=== PATIENT | female | born 1965 | race Caucasian/White ===

== ENCOUNTER → 2017-05-08 | Outpatient (CLI) | payer OTHER ==
[~2017-05-08] MED LIST: ALBUTEROL PO; BISCODYL PO; DESL5TAB28 PO; DOCU-116 PO; DOXE100C4 PO; DULO60CA63 PO; ESTR1TAB17 PO; FLUT15.812 NS; FLUT1DIS3 IH; GABA-529 PO; HYDR-4064 PO; L-THYROXIN PO; LORA1TAB3 PO; MONT10TA24 PO; POLY17PO4 PO; PROG200C7 PO; SUMATRIPTAN PO; TEMA30CA PO; VALCYCLOVIR PO; VENL100T4 PO; VITAMIN D2 PO
== END | disposition home or self-care (01) ==
LOC: RAH 10:47
PROVIDERS: ATTEND Internal Medicine
DX: N64.89 Other specified disorders of breast (principal); R92.8 Other abnormal and inconclusive findings on diagnostic imaging of breast
CPT/HCPCS: 76641; 77065

== ENCOUNTER 2018-02-11 16:59 | Emergency (ER) | payer OTHER ==
[2018-02-11] MEDS ORDERED: NITROGLYCERIN 1GM/1 INCH PACKET TD ONE (17:38)
[2018-02-11 17:40] LABS: BASOPHILS % (AUTO) 0.5 % (0.0-5.0); EOSINOPHILS % (AUTO) 1.1 % (0.0-8.0); HEMATOCRIT 42.7 % (36-48); MEAN CORPUSCULAR HEMOGLOBIN 33.4 pg (27.0-33.0); MEAN CORPUSCULAR HGB CONC 33.9 g/dL (32.0-36.0); MEAN CORPUSCULAR VOLUME 98.4 fL (79-99); MONOCYTES % (AUTO) 6.4 % (3.0-13.0); NUCLEATED RED BLOOD CELLS 0.1 % (0.0-0.19); PLATELET COUNT (AUTO) 278 K/uL (130-400); RED BLOOD CELL COUNT(AUTO) 4.34 MIL/uL (4.00-5.50); RED CELL DISTRIBUTION WIDTH 12.3 % (11.0-15.5); WHITE BLOOD COUNT (AUTO) 6.2 K/uL (4.8-10.8)
[2018-02-11 17:51] LABS: CREATININE 0.9 mg/dL (0.5-1.5); POTASSIUM 4.1 mmol/L (3.5-5.1)
[2018-02-11 17:55] LABS: ALBUMIN 3.4 g/dL (3.5-5.0); BILIRUBIN,TOTAL 0.1 mg/dL (0.2-1.0); TOTAL PROTEIN, SERUM 7.1 g/dL (6.0-8.3)
[2018-02-11 18:01] LABS: AMPHET/METH SCREEN,URINE NEGATIVE (NEGATIVE); BARBITURATE SCREEN, URINE NEGATIVE (NEGATIVE); BENZODIAZEPINES SCREEN,URINE NEGATIVE (NEGATIVE); CANNABINOID SCREEN,URINE NEGATIVE (NEGATIVE); COCAINE SCREEN,URINE NEGATIVE (NEGATIVE); OPIATE SCREEN,URINE NEGATIVE (NEGATIVE); PHENCYCLIDINE SCREEN,URINE NEGATIVE (NEGATIVE)
== END 2018-02-11 19:04 | disposition home or self-care (01) ==
LOC: EDH 16:59
DX: F41.9 Anxiety disorder, unspecified (principal); R07.89 Other chest pain; I10 Essential (primary) hypertension; J45.909 Unspecified asthma, uncomplicated; E07.9 Disorder of thyroid, unspecified; Z88.2 Allergy status to sulfonamides; Z88.5 Allergy status to narcotic agent
CPT/HCPCS: 36415; 71045; 80053; 80305; 84484; 85025; 93005; 99285; G0480

== ENCOUNTER 2018-03-11 03:26 | Emergency (ER) | payer OTHER ==
[2018-03-11 03:48] LABS: BASOPHILS % (AUTO) 0.4 % (0.0-5.0); EOSINOPHILS % (AUTO) 1.2 % (0.0-8.0); HEMATOCRIT 37.7 % (36-48); LYMPHOCYTES % (AUTO) 23.9 % (21.0-51.0); MEAN CORPUSCULAR HGB CONC 34.7 g/dL (32.0-36.0); MONOCYTES % (AUTO) 5.9 % (3.0-13.0); NEUTROPHILS % (AUTO) 68.6 % (40.0-77.0); PLATELET COUNT (AUTO) 260 K/uL (130-400); RED BLOOD CELL COUNT(AUTO) 3.85 MIL/uL (4.00-5.50); RED CELL DISTRIBUTION WIDTH 12.3 % (11.0-15.5); WHITE BLOOD COUNT (AUTO) 8.1 K/uL (4.8-10.8)
[2018-03-11 03:53] LABS: APPEARANCE,URINE Clear (CLEAR); BILIRUBIN,URINE Negative (NEGATIVE); COLOR,URINE Yellow (YELLOW); GLUCOSE, URINE (UA) Negative (NEGATIVE); KETONES,URINE Negative (NEGATIVE); LEUKOCYTE ESTERASE ,URINE Negative (NEGATIVE); NITRATE,URINE Negative (NEGATIVE); OCCULT BLOOD,URINE Negative (NEGATIVE); PH,URINE 6.5 (5.0-8.0); PROTEIN,URINE Negative (NEGATIVE); UROBILINOGEN,URINE 0.2 mg/dL (0.2-1.0)
[2018-03-11 03:56] LABS: CARBON DIOXIDE 20 mmol/L (21-32); CHLORIDE 104 mmol/L (101-111); CREATININE 0.9 mg/dL (0.5-1.5); GLOMERULAR FILTR. RATE CALC 69 mL/min (>60); GLUCOSE,RANDOM 135 mg/dL (70-105); SODIUM SERUM 138 mmol/L (136-145); UREA NITROGEN, BLOOD 14 mg/dL (7-18)
[2018-03-11 04:00] LABS: AMPHET/METH SCREEN,URINE NEGATIVE (NEGATIVE); BARBITURATE SCREEN, URINE NEGATIVE (NEGATIVE); BENZODIAZEPINES SCREEN,URINE NEGATIVE (NEGATIVE); CANNABINOID SCREEN,URINE NEGATIVE (NEGATIVE); COCAINE SCREEN,URINE NEGATIVE (NEGATIVE); OPIATE SCREEN,URINE NEGATIVE (NEGATIVE); PHENCYCLIDINE SCREEN,URINE NEGATIVE (NEGATIVE)
[2018-03-11 04:00] LABS: ALANINE AMINOTRANSFERASE 29 U/L (12-78); ALBUMIN 3.4 g/dL (3.5-5.0); ALCOHOL, BLOOD < 3 mg/dL (0-10); ASPARTATE AMINOTRANSFERASE 19 U/L (10-37); BILIRUBIN,TOTAL 0.2 mg/dL (0.2-1.0); CREATINE KINASE, TOTAL 80 U/L (21-232); TOTAL PROTEIN, SERUM 7.1 g/dL (6.0-8.3)
[2018-03-11 04:11] LABS: ACETAMINOPHEN < 1 mcg/mL (10-30); SALICYLATE < 2.8 mg/dL (2.8-20.0)
[2018-03-11] MEDS ORDERED: SODIUM CHLORIDE 0.9% 1000ML 1,000 ML IV ONE (04:23)
[2018-03-11] MEDS ORDERED: ONDANSETRON HCL 4 MG/2 ML VIAL ONE ×2 (05:03→06:11)
[2018-03-11 09:35] LABS: ACETAMINOPHEN < 1 mcg/mL (10-30); SALICYLATE < 2.8 mg/dL (2.8-20.0)
== END 2018-03-11 14:07 ==
LOC: EDH 03:26
DX: T14.91XA Suicide attempt, initial encounter (principal); T40.4X2A Poisoning by other synthetic narcotics, intentional self-harm, initial encounter; F41.9 Anxiety disorder, unspecified; J45.909 Unspecified asthma, uncomplicated; F32.9 Major depressive disorder, single episode, unspecified; I10 Essential (primary) hypertension; E07.9 Disorder of thyroid, unspecified; Z90.710 Acquired absence of both cervix and uterus; Z88.5 Allergy status to narcotic agent; Z88.2 Allergy status to sulfonamides; Y92.89 Other specified places as the place of occurrence of the external cause; Y93.89 Activity, other specified; Y99.8 Other external cause status
CPT/HCPCS: 36415; 80053; 80305; 81003; 82550; 84484; 85025; 93005; 96374; 96376; 99285; G0480 ×3; G0481 ×2; J2405 ×2; J7030

== ENCOUNTER 2019-06-06 12:10 | Observation (INO) | payer OTHER ==
[~2019-06-06] VITALS: Ht 157.5 cm; Wt 70.6 kg
[~2019-06-06 12:10] MED LIST changes: -DESL5TAB28 PO; +DESL5TAB45 PO; -DULO60CA63 PO; +DULO60CA64 PO; -MONT10TA24 PO; +MONT10TA26 PO; +PROG200C11 PO; -PROG200C7 PO
[2019-06-06] MEDS ORDERED: RACEPINEPHRINE HCL 2.25% 0.5 ML NEB SOLN ONE ×2 (12:20→13:34)
[2019-06-06] MEDS ORDERED: IPRATROPIUM/ALBUTEROL SULFATE 3 ML SOLUTION IH ONE ×3 (12:20→17:16)
[2019-06-06] MEDS ORDERED: METHYLPREDNISOLONE SOD SUCC 125MG/2ML VIAL ONE (12:24)
[2019-06-06] MEDS ORDERED: DiphenhydrAMINE HCL 50 MG/ML VIAL ONE ×3 (12:46→20:53)
[2019-06-06 12:55] LABS: BASOPHILS % (AUTO) 0.6 % (0.0-5.0); EOSINOPHILS % (AUTO) 1.2 % (0.0-8.0); HEMATOCRIT 39.4 % (36-48); LYMPHOCYTES % (AUTO) 15.1 % (21.0-51.0); MEAN CORPUSCULAR HEMOGLOBIN 33.6 pg (27.0-33.0); MEAN CORPUSCULAR HGB CONC 34.3 g/dL (32.0-36.0); MONOCYTES % (AUTO) 7.8 % (3.0-13.0); PLATELET COUNT (AUTO) 269 K/uL (130-400); RED BLOOD CELL COUNT(AUTO) 4.02 MIL/uL (4.00-5.50); RED CELL DISTRIBUTION WIDTH 12.5 % (11.0-15.5)
[2019-06-06 13:01] LABS: CREATININE 1.1 mg/dL (0.5-1.5); POTASSIUM 3.9 mmol/L (3.5-5.1)
[2019-06-06 13:04] LABS: ALBUMIN 3.7 g/dL (3.5-5.0); BILIRUBIN,TOTAL 0.3 mg/dL (0.2-1.0); TOTAL PROTEIN, SERUM 7.9 g/dL (6.0-8.3)
[2019-06-06] MEDS: SODIUM CHLORIDE 0.9% 1000ML 1,000 ML IV SCH (16:45)
[2019-06-06] MEDS: IPRATROPIUM/ALBUTEROL SULFATE 3 ML SOLUTION IH SCH ×2 (17:28→21:01)
[2019-06-06] MEDS: METHYLPREDNISOLONE SOD SUCC 40MG/ML 1ML IVP SCH ×2 (18:00→23:59)
[2019-06-06] MEDS ORDERED: SODIUM CHLORIDE 0.9% 1000ML 1,000 ML IV ONE (19:02)
--- NOTE | 2019-06-06 19:10 | NUR ---
REPORT FROM KADY MITCHELL. PT HERE DUE TO ASTHMA EXACERBATION.
--- NOTE | 2019-06-06 19:45 | NUR ---
PT ARRIVE FROM ER. DR FRANCOIS SAW PT AT ER. CURRENTLY ON STEROIDS AND DUONEBS. HAS SEVERE COUGH, TRIGGERED BY WALKING AND TALKING. PT ON NC AT 2LPM.
[2019-06-06 20:00] VITALS: BP 155/69
[2019-06-06 23:53] VITALS: BP 151/69
[2019-06-07] MEDS: IPRATROPIUM/ALBUTEROL SULFATE 3 ML SOLUTION IH SCH ×6 (01:43→21:34)
[2019-06-07 04:22] VITALS: BP 134/62
[2019-06-07] MEDS ORDERED: LEVO50TA11 PO (05:14)
[2019-06-07] MEDS ORDERED: ESTR1TAB17 PO (05:14)
[2019-06-07] MEDS ORDERED: METO-391 PO (05:14)
[2019-06-07] MEDS ORDERED: VALA500T PO (05:14)
[2019-06-07] MEDS ORDERED: MONT10TA26 PO (05:14)
[2019-06-07] MEDS ORDERED: LIOT5TAB11 PO (05:14)
[2019-06-07] MEDS ORDERED: ADV250 IH (05:14)
[2019-06-07] MEDS ORDERED: LINA145C PO (05:14)
[2019-06-07] MEDS ORDERED: TRAZ-187 PO (05:14)
[2019-06-07] MEDS ORDERED: ERGO2000 PO (05:14)
[2019-06-07] MEDS ORDERED: DESL5TAB45 PO (05:14)
[2019-06-07] MEDS ORDERED: VENL150C2 PO (05:14)
[2019-06-07] MEDS ORDERED: PROG200C11 PO (05:14)
[2019-06-07] MEDS ORDERED: ALBU0.63 IH (05:14)
[2019-06-07] MEDS ORDERED: SUMA100T16 PO (05:14)
[2019-06-07] MEDS ORDERED: AZEL23SP NS (05:14)
[2019-06-07] MEDS ORDERED: AMLO5TAB5 PO (05:14)
[2019-06-07] MEDS: SODIUM CHLORIDE 0.9% 1000ML 1,000 ML IV SCH (06:05)
[2019-06-07] MEDS: METHYLPREDNISOLONE SOD SUCC 40MG/ML 1ML IVP SCH ×4 (06:08→23:56)
--- NOTE | 2019-06-07 07:40 | NUR ---
ASSESSMENT PT IS AAOX3 DENIES CP DENIES SOB WHILE AT REST. NO COUGHING AT THIS TIME. DENIES NV NO COMPLAINTS RESTING IN BED, CALL LIGHT WITHIN REACH. VISITOR AT BEDSIDE.
[2019-06-07 07:50] VITALS: BP 150/74
[2019-06-07] MEDS ORDERED: **HM**(Linaclotide (Linzess) 145 MCG PO PRN (09:00)
[2019-06-07] MEDS ORDERED: ACETAMINOPHEN 325 MG TAB PO PRN (09:30)
[2019-06-07 11:33] VITALS: BP 145/72
--- NOTE | 2019-06-07 13:30 | NUR ---
STATUS RESTING IN BED, NO COMPLAINTS AT THIS TIME. FAMILY AT BEDSIDE.
--- NOTE | 2019-06-07 15:30 | NUR ---
CALLED DR FRANCOIS ASKED HIM IF HE WAS GOING TO ROUND ON PATIENT, STATES HE WILL COME SEE PATIENT.
[2019-06-07] MEDS: BENZONATATE 100 MG CAPSULE PO PRN (15:51)
[2019-06-07 15:57] VITALS: BP_SYST 140; BP_SYST 142; BP_DIAS 70; BP_DIAS 79
[2019-06-07 16:03] VITALS: BP 142/70
[2019-06-07] MEDS ORDERED: CYCLOBENZAPRINE HCL 10 MG TABLET PO PRN (18:15)
[2019-06-07] MEDS ORDERED: LORAZEPAM 1 MG TABLET PO PRN (18:15)
--- NOTE | 2019-06-07 18:25 | NUR ---
DR FRANCOIS ROUNDED SAW PATIENT, ORDERS RECEIVED
[2019-06-07 19:39] VITALS: BP 171/88
[2019-06-07] MEDS ORDERED: MAGNESIUM 2GM PREMIX 50ML 50 ML IV ONE (21:00)
[2019-06-07] MEDS: LEVOFLOXACIN 500 MG/D5W 100 ML 100 ML IV SCH (21:24)
[2019-06-07] MEDS: TRAZODONE HCL 100 MG TABLET PO SCH (21:26)
[2019-06-07] MEDS: MONTELUKAST SODIUM 10 MG TAB PO SCH (21:26)
[2019-06-07] MEDS: LORATADINE 10 MG TABLET PO SCH (21:26)
[2019-06-07] MEDS: METOPROLOL SUCCINATE 50 MG TAB.SR.24H PO SCH (21:26)
[2019-06-07] MEDS: PROGESTERONE MICRONIZED 200 MG PO SCH (21:28)
[2019-06-08] VITALS: BP_DIAS 84
[2019-06-08] MEDS: IPRATROPIUM/ALBUTEROL SULFATE 3 ML SOLUTION IH SCH ×6 (01:34→21:25)
[2019-06-08 03:48] VITALS: BP 150/80
[2019-06-08] MEDS ORDERED: LEVOTHYROXINE 50 MCG TABLET ONE (06:10)
[2019-06-08] MEDS: LEVOTHYROXINE 50 MCG TABLET PO SCH (06:13)
[2019-06-08] MEDS: METHYLPREDNISOLONE SOD SUCC 40MG/ML 1ML IVP SCH ×2 (06:14→12:25)
[2019-06-08 07:16] VITALS: BP 140/75
[2019-06-08] MEDS: VENLAFAXINE HCL 225 MG PO SCH (07:37)
[2019-06-08] MEDS: ESTRADIOL 0.5 MG TABLET PO SCH (07:37)
[2019-06-08] MEDS: LIOTHYRONINE SODIUM 10 MCG PO SCH (07:37)
[2019-06-08] MEDS: AMLODIPINE BESYLATE 5 MG TAB PO SCH (07:38)
--- NOTE | 2019-06-08 07:50 | NUR ---
ASSESSMENT PT IS AAOX3 DENIES CP DENIES SOB DENIES NV NO COMPLAINTS RESTING IN BED, STATES SHE FEELS BETTER TODAY THAN YESTERDAY. CALL LIGHT WITHIN REACH.
[2019-06-08 08:35] LABS: HEMATOCRIT 38.5 % (36-48); MEAN CORPUSCULAR HEMOGLOBIN 33.4 pg (27.0-33.0); MEAN CORPUSCULAR HGB CONC 33.2 g/dL (32.0-36.0); MEAN CORPUSCULAR VOLUME 100.5 fL (79-99); PLATELET COUNT (AUTO) 245 K/uL (130-400); RED BLOOD CELL COUNT(AUTO) 3.83 MIL/uL (4.00-5.50); RED CELL DISTRIBUTION WIDTH 13.2 % (11.0-15.5); WHITE BLOOD COUNT (AUTO) 13.9 K/uL (4.8-10.8)
[2019-06-08 08:51] LABS: CREATININE 0.9 mg/dL (0.5-1.5); POTASSIUM 4.3 mmol/L (3.5-5.1)
[2019-06-08 10:34] LABS: BAND NEUTROPHILS % (MANUAL) 4 % (0-2); LYMPHOCYTES % (MANUAL) 7 % (22-44); MAN.DIFF COMMENT-IMPRESSION MANUAL DIFFERENTIAL; MONOCYTES % (MANUAL) 4 % (2-9); PLATELET MORPHOLOGY COMMENT ADEQUATE; SEGMENTED NEUTROPHILS % 85 % (40-70)
[2019-06-08 11:27] VITALS: BP 133/79
--- NOTE | 2019-06-08 14:45 | NUR ---
DR FRANCOIS CALLED ORDERED TO STOP IV STEROIDS. STATES HE WILL COME BY LATER TO SEE PATIENT.
[2019-06-08 15:20] VITALS: BP 144/77
--- NOTE | 2019-06-08 18:42 | NUR ---
CM NOTE CM called Dr. Fan to discuss plan for pt. States he is discharging today and will be coming to hospital soon to round.
[2019-06-08 19:38] VITALS: BP 141/78
[2019-06-08] MEDS: LEVOFLOXACIN 500 MG/D5W 100 ML 100 ML IV SCH (20:56)
[2019-06-08] MEDS: PROGESTERONE MICRONIZED 200 MG PO SCH (21:00)
[2019-06-08] MEDS: METOPROLOL SUCCINATE 50 MG TAB.SR.24H PO SCH (21:06)
[2019-06-08] MEDS: TRAZODONE HCL 100 MG TABLET PO SCH (21:06)
[2019-06-08] MEDS: MONTELUKAST SODIUM 10 MG TAB PO SCH (21:06)
[2019-06-08] MEDS: LORATADINE 10 MG TABLET PO SCH (21:06)
[2019-06-09 00:25] VITALS: BP 129/72
[2019-06-09] MEDS: IPRATROPIUM/ALBUTEROL SULFATE 3 ML SOLUTION IH SCH ×4 (01:30→13:55)
[2019-06-09 04:22] VITALS: BP 135/72
[2019-06-09 07:41] VITALS: BP 151/88
[2019-06-09] MEDS: VENLAFAXINE HCL 225 MG PO SCH (08:00)
[2019-06-09] MEDS: AMLODIPINE BESYLATE 5 MG TAB PO SCH (08:10)
[2019-06-09] MEDS: LEVOTHYROXINE 50 MCG TABLET PO SCH (08:10)
[2019-06-09] MEDS: ESTRADIOL 0.5 MG TABLET PO SCH (08:10)
[2019-06-09] MEDS: LIOTHYRONINE SODIUM 10 MCG PO SCH (08:12)
[2019-06-09] MEDS: BENZONATATE 100 MG CAPSULE PO PRN (11:28)
[2019-06-09 11:44] VITALS: BP 146/90
--- NOTE | 2019-06-09 15:00 | NUR ---
GIVEN DISMISSAL INSTRUCTIONS, VERBALIZED UNDERSTANDING. REMOVED SALINE LOCK FROM LEFT HAND, IV SITE WITHOUT REDNESS NOTED. REMOVED TELE PACK. AWAITING FOR FAMILY MEMBER TO PICK HER UP.
--- NOTE | 2019-06-09 16:10 | NUR ---
TAKEN TO PRIVATE CAR ALONG WITH PERSONAL BELONGINGS VIA WHEELCHAIR ALONG WITH PERSONAL BELONGINGS BY SAEED [employer]Z.
[2019-06-14] MEDS ORDERED: ERGOCALCIFEROL 50000 UNIT PO SCH (09:00)
== END 2019-06-09 16:00 | disposition home or self-care (01) ==
LOC: EDH 12:10 → EDHIP 15:40 → 2DH 19:27
PROVIDERS: ADMIT Internal Medicine; ATTEND Internal Medicine
DX: J45.901 Unspecified asthma with (acute) exacerbation (principal); J80 Acute respiratory distress syndrome; I10 Essential (primary) hypertension; F41.9 Anxiety disorder, unspecified; G89.4 Chronic pain syndrome; E03.9 Hypothyroidism, unspecified; F32.9 Major depressive disorder, single episode, unspecified; K21.9 Gastro-esophageal reflux disease without esophagitis; Z79.899 Other long term (current) drug therapy; Z88.5 Allergy status to narcotic agent; Z88.2 Allergy status to sulfonamides; Z88.8 Allergy status to other drugs, medicaments and biological substances
CPT/HCPCS: 36415 ×2; 71045 ×2; 80048; 80053; 85025 ×2; 94640 ×22; 94664; 96365; 96366 ×2; 96368; 96375; 96376 ×2; 99291; G0378 ×65; J1200 ×3; J1956 ×2; J2920 ×7; J2930; J3475; J7030

== ENCOUNTER 2022-06-09 06:56 | Day surgery (SDC) | payer OTHER ==
[2022-06-07 15:44] VITALS: BP 140/61
[2022-06-07 15:56] LABS: BASOPHILS % (AUTO) 0.6 % (0.0-5.0); EOSINOPHILS % (AUTO) 1.6 % (0.0-8.0); HEMATOCRIT 40.9 % (36-48); LYMPHOCYTES % (AUTO) 26.2 % (21.0-51.0); MEAN CORPUSCULAR HEMOGLOBIN 32.9 pg (27.0-33.0); MEAN CORPUSCULAR HGB CONC 35.9 g/dL (32.0-36.0); MEAN CORPUSCULAR VOLUME 91.5 fL (79-99); MONOCYTES % (AUTO) 8.4 % (3.0-13.0); NEUTROPHILS % (AUTO) 62.8 % (40.0-77.0); PLATELET COUNT (AUTO) 218 K/uL (130-400); RED BLOOD CELL COUNT(AUTO) 4.47 MIL/uL (4.00-5.50); RED CELL DISTRIBUTION WIDTH 12.8 % (11.0-15.5); WHITE BLOOD COUNT (AUTO) 6.9 K/uL (4.8-10.8)
[2022-06-07 16:07] LABS: CREATININE 1.2 mg/dL (0.5-1.5)
[2022-06-07 16:33] LABS: INR 0.99 (0.85-1.15); PROTHROMBIN TIME 10.8 SEC (9.6-11.6)
[2022-06-07 16:34] LABS: PARTIAL THROMBOPLASTIN TIME 26.9 SEC (26.3-35.5)
[2022-06-09] VITALS (17 sets, daily range): BP systolic 121–147; BP diastolic 50–87
[~2022-06-09] VITALS: Ht 157.5 cm; Wt 67.0 kg
[~2022-06-09 06:56] MED LIST changes: +0.9% NACL 500ML IV.SOLN 500 ML IV SCH; +ADV250 IH; -ALBUTEROL PO; +AMLO5TAB5 PO; +AZEL23SP NS; -BISCODYL PO; +BUPIVACAINE/EPI/PF 0.25% 50 ML VIAL IJ ONE; +BUSP15TA3 PO; +CEFAZOLIN SODIUM 2 GM VIAL IVPB ONE; +CEFAZOLIN SODIUM 2 GM VIAL IVPB SCH; -DOCU-116 PO; -DOXE100C4 PO; -DULO60CA64 PO; +ERGO2000 PO; -FLUT15.812 NS; -FLUT1DIS3 IH; -GABA-529 PO; -HYDR-4064 PO; -L-THYROXIN PO; +LEVO50TA11 PO; +LIOT5TAB11 PO; -LORA1TAB3 PO; +METO-391 PO; +MONT-39 PO; -MONT10TA26 PO; -POLY17PO4 PO; -SUMATRIPTAN PO; -TEMA30CA PO; +TRAZ-187 PO; +VALA500T PO; -VALCYCLOVIR PO; -VENL100T4 PO; +VENL150C4 PO; -VITAMIN D2 PO
[2022-06-09] MEDS ORDERED: LACTATED RINGERS 1000ML 1,000 ML IV ONE (07:21)
[2022-06-09 07:33] LABS: CREATININE 0.9 mg/dL (0.5-1.5); POTASSIUM 3.2 mmol/L (3.5-5.1)
[2022-06-09] MEDS ORDERED: FAMOTIDINE 20MG VIAL IV ONE (08:20)
[2022-06-09] MEDS ORDERED: PROPOFOL 10 MG/ML 20ML VIAL IV ONE (08:25)
[2022-06-09] MEDS ORDERED: FENTANYL CITRATE PF 50 MCG/1 ML 2ML VIAL ONE ×3 (08:25→10:19)
[2022-06-09] MEDS ORDERED: GLYCOPYRROLATE 1 MG/5 ML SYRINGE ONE (08:25)
[2022-06-09] MEDS ORDERED: ROCURONIUM 10MG/1ML SYR 10 MG/ML ML ONE (08:25)
[2022-06-09] MEDS ORDERED: LIDOCAINE PF 100MG/5ML (2%) SYRINGE 5ML ONE (08:25)
[2022-06-09] MEDS ORDERED: ONDANSETRON 4MG INJ ONE (08:27)
[2022-06-09] MEDS ORDERED: MIDAZOLAM HCL 1 MG/ML 2ML VIAL ONE (08:27)
[2022-06-09] MEDS ORDERED: CEFAZOLIN SODIUM 2 GM VIAL IVPB ONE (09:01)
[2022-06-09] MEDS ORDERED: BUPIVACAINE/EPI/PF 0.25% 50 ML VIAL IJ ONE (09:30)
[2022-06-09] MEDS ORDERED: NEOSTIGMINE 5MG/5ML SYR IV ONE (09:30)
[2022-06-09] MEDS ORDERED: ALBUTEROL 0.042% 1.25MG/3ML IH ONE (10:46)
[2022-06-09] MEDS ORDERED: ACETAMINOPHEN 325 MG TAB ONE (11:38)
[2022-06-12 11:25] VITALS: BP 131/59
== END 2022-06-09 11:30 | disposition home or self-care (01) ==
LOC: DAH 06:56
PROVIDERS: ATTEND Surgery
DX: K81.1 Chronic cholecystitis (principal); Z20.822 Contact with and (suspected) exposure to COVID-19; K82.8 Other specified diseases of gallbladder; E03.9 Hypothyroidism, unspecified; J45.909 Unspecified asthma, uncomplicated; K21.9 Gastro-esophageal reflux disease without esophagitis; Z98.890 Other specified postprocedural states; Z79.01 Long term (current) use of anticoagulants; Z88.8 Allergy status to other drugs, medicaments and biological substances; Z88.2 Allergy status to sulfonamides; Z79.890 Hormone replacement therapy; Z79.899 Other long term (current) drug therapy; Z98.51 Tubal ligation status; Z90.710 Acquired absence of both cervix and uterus
CPT/HCPCS: 80048 ×2; 84703; 85025; 85610; 85730; 87426; 36415 ×2; 47562; 94640; A4663; J7030; J7120; J3490 ×3; J3010 ×3; J2710; J2001; J2250; J2704; J2405; J0690 ×2; C1769 ×3; A4649 ×2; A4215; A4223; A4222; A4221; A4600

== ENCOUNTER → 2023-01-31 | Outpatient (CLI) | payer OTHER ==
[~2023-01-31] MED LIST changes: -0.9% NACL 500ML IV.SOLN 500 ML IV SCH; -BUPIVACAINE/EPI/PF 0.25% 50 ML VIAL IJ ONE; -CEFAZOLIN SODIUM 2 GM VIAL IVPB ONE; -CEFAZOLIN SODIUM 2 GM VIAL IVPB SCH; +CEPH500B PO; +HYDR50CA50 PO; +MELO-106 PO
== END | disposition home or self-care (01) ==
LOC: RAH 14:25
PROVIDERS: ATTEND Family Medicine
DX: S49.91XA Unspecified injury of right shoulder and upper arm, initial encounter (principal); M51.36 Other intervertebral disc degeneration, lumbar region; M43.26 Fusion of spine, lumbar region; M19.011 Primary osteoarthritis, right shoulder; M47.818 Spondylosis without myelopathy or radiculopathy, sacral and sacrococcygeal region; Z90.49 Acquired absence of other specified parts of digestive tract; X58.XXXA Exposure to other specified factors, initial encounter; Y93.89 Activity, other specified; Y92.89 Other specified places as the place of occurrence of the external cause; Y99.8 Other external cause status
CPT/HCPCS: 72100; 72220; 73030